=== PATIENT | female | born 1975 | race African-American/Black ===

== ENCOUNTER 2020-03-08 07:27 | Emergency (ER) | payer MEDICAID, OTHER ==
[~2020-03-08] VITALS: Ht 180.3 cm; Wt 136.0 kg
[2020-03-08 07:29] VITALS: BP 138/81
[2020-03-08] MEDS ORDERED: ACETAMINOPHEN WITH CODEINE 300/30MG TABLET PO ONE (09:15)
== END 2020-03-08 10:00 | disposition home or self-care (01) ==
LOC: ER 07:27
DX: M25.561 Pain in right knee (principal); Z98.890 Other specified postprocedural states
CPT/HCPCS: 73562; 81025; 99283